=== PATIENT | female | born 1945 | race Caucasian/White ===

== ENCOUNTER 2017-04-01 06:31 | Day surgery (SDC) | payer MEDICARE, BC ==
[2017-04-01] MEDS ORDERED: fentaNYL 100 MCG/2 ML SDV ONE (07:14)
[2017-04-01] MEDS ORDERED: Propofol 200 MG/20 ML SDV ONE ×2 (07:14→07:53)
[2017-04-01] MEDS ORDERED: Sodium Chloride 0.9% 1,000 ML IV SCH (07:30)
--- NOTE | 2017-04-01 15:21 | OR ---
DATE OF PROCEDURE: 04/01/2017 PROCEDURE PERFORMED: Colonoscopy. FINDINGS: Normal colonoscopy. PREOPERATIVE DIAGNOSIS: Gastrointestinal bleeding. POSTOPERATIVE DIAGNOSIS: Gastrointestinal bleeding. RISKS: Risks, benefits, alternatives, limitations including, but not limited to infection, bleeding, and perforation were explained to the patient, and she wished to proceed. PROCEDURE IN DETAIL: The patient was placed in the left lateral decubitus position. A digital rectal exam was performed without abnormality. The scope was introduced and advanced atraumatically to the ileocecal valve. The scope was brought back to the ascending, transverse, descending colon, and retroflexed. No evidence of old or new blood. No masses. No polyps. No diverticulosis. As far as the etiology of the bleeding is concerned, there could not be definitive diagnosis due to the fact that the patient does not have any blood nor any diagnostic abnormalities. The prep would be described as moderately acceptable, and approximately 90% of luminal surface could be seen. Sukhdeep Easley MD /[id number]
== END 2017-04-01 10:00 | disposition home or self-care (01) ==
LOC: JP.SDS 06:31
PROVIDERS: ATTEND Surgery
DX: K92.2 Gastrointestinal hemorrhage, unspecified (principal); Z88.2 Allergy status to sulfonamides; Z88.8 Allergy status to other drugs, medicaments and biological substances
CPT/HCPCS: 45378; J2704; J3010; J7040

== ENCOUNTER 2021-10-03 22:44 | Emergency (ER) | payer MEDICARE ==
[2021-10-04 00:03] LABS: ESTIMATED GFR 75 mL/min (>60)
== END 2021-10-04 00:37 | disposition home or self-care (01) ==
LOC: JP.ED 22:44
DX: U07.1 COVID-19 (principal); Z88.6 Allergy status to analgesic agent; Z88.2 Allergy status to sulfonamides
CPT/HCPCS: 36415; 71046; 71046-26; 80053; 85025; 86140; 87081; 87880-QW; 99283; 99283-25; U0002

== ENCOUNTER 2022-06-27 20:34 | Emergency (ER) | payer MEDICARE ==
[2022-06-27 21:30] LABS: CORONAVIRUS COVID-19 NAA NEGATIVE (NEGATIVE)
[2022-06-27 21:37] LABS: ESTIMATED GFR 75 mL/min (>60)
[2022-06-27] MEDS ORDERED: Gabapentin 100 MG Cap PO ONE (22:00)
[2022-06-27] MEDS ORDERED: carBAMazepine 100 MG Tab ER PO ONE (22:05)
== END 2022-06-27 23:46 | disposition home or self-care (01) ==
LOC: JP.ED 20:34
DX: G50.0 Trigeminal neuralgia (principal); Z88.8 Allergy status to other drugs, medicaments and biological substances; Z20.822 Contact with and (suspected) exposure to COVID-19
CPT/HCPCS: 0241U; 36415; 70450; 80053; 85025; 85610; 85730; 86140; 99284; A9270

== ENCOUNTER 2022-07-01 20:00 | Emergency (ER) | payer MEDICARE | END 2022-07-01 22:03 | disposition home or self-care (01) | LOC: JP.ED 20:00 | DX: S50.11XA Contusion of right forearm, initial encounter (principal); S00.83XA Contusion of other part of head, initial encounter; E78.5 Hyperlipidemia, unspecified; Z88.8 Allergy status to other drugs, medicaments and biological substances; W19.XXXA Unspecified fall, initial encounter | CPT/HCPCS: 70486; 73110-26-RT; 73110-RT; 99284; 99285 ==

== ENCOUNTER 2022-10-24 15:43 | Emergency (ER) | payer MEDICARE | END 2022-10-24 16:11 | disposition left against medical advice (07) | LOC: JP.ED 15:43 | DX: Z53.21 Procedure and treatment not carried out due to patient leaving prior to being seen by health care provider (principal) ==

== ENCOUNTER 2022-12-05 07:59 | Emergency (ER) | payer MEDICARE ==
[2022-12-05 08:44] LABS: BASOPHILS ABSOLUTE AUTO 0.04 K/uL (0.00-0.10); BASOPHILS PERCENT AUTO 0.7 % (0.1-1.3); EOSINOPHILS ABSOLUTE AUTO 0.05 K/uL (0.00-0.40); EOSINOPHILS PERCENT AUTO 0.9 % (0.0-5.4); HEMATOCRIT 43.8 % (34.3-46.0); HEMOGLOBIN 14.5 g/dL (11.2-15.5); IMMATURE GRAN PERCENT AUTO 0.4 % (0.0-0.7); LYMPHOCYTES ABSOLUTE AUTO 1.06 K/uL (0.8-3.3); LYMPHOCYTES PERCENT AUTO 18.8 % (11.4-47.7); MEAN CORPUSCULAR HEMOGLOBIN 29.1 pg (31.6-35.5); MEAN CORPUSCULAR HGB CONC 33.1 g/dL (31.6-35.5); MONOCYTES PERCENT AUTO 7.1 % (3.3-12.6); NEUTROPHILS ABSOLUTE AUTO 4.07 K/uL (1.0-7.6); NEUTROPHILS PERCENT AUTO 72.1 % (40.0-78.1); PLATELET COUNT,PLT 228 K/uL (130-375); RED BLOOD CELL COUNT 4.98 M/uL (3.77-5.24); WHITE BLOOD CELL COUNT,WBC 5.6 K/uL (3.2-11.0)
[2022-12-05 08:45] LABS: IMMATURE GRAN ABSOLUTE AUTO 0.02 K/uL (0.00-0.23)
[2022-12-05 09:00] LABS: CREATININE 0.8 mg/dL (0.6-1.0); EST CRCL DRUG DOSING (CG) 45.32 mL/min; POTASSIUM,K 3.4 mmol/L (3.6-5.2)
[2022-12-05 09:02] LABS: ANION GAP 11.4 mmol/L (5.0-14.0)
[2022-12-05 09:04] LABS: APPEARANCE,URINE CLEAR (CLEAR); BILIRUBIN,URINE NEGATIVE (NEGATIVE); COLOR,URINE YELLOW (YELLOW); GLUCOSE,URINE NEGATIVE (NEGATIVE); KETONES,URINE NEGATIVE (NEGATIVE); LEUKOCYTE ESTERASE,URINE SMALL (NEGATIVE); NITRITE,URINE NEGATIVE (NEGATIVE); OCCULT BLOOD,URINE TRACE-INTACT (NEGATIVE); PROTEIN,URINE NEGATIVE (NEGATIVE); UROBILINOGEN,URINE 0.2 EU/dL (0.2-1.0)
[2022-12-05 09:11] LABS: BACTERIA,URINE FEW; EPITHELIAL CELLS,URINE MODERATE; RBC,URINE NOT SEEN (0-5); WBC,URINE 0-5 (0-5)
[2022-12-05 09:12] LABS: AMORPHOUS SEDIMENT,URINE NOT SEEN; MUCUS,URINE MODERATE
== END 2022-12-05 10:52 | disposition home or self-care (01) ==
LOC: JP.ED 07:59
DX: G30.9 Alzheimer's disease, unspecified (principal); Z88.2 Allergy status to sulfonamides; Z91.018 Allergy to other foods; Z88.6 Allergy status to analgesic agent; Z88.8 Allergy status to other drugs, medicaments and biological substances
CPT/HCPCS: 36415; 80048; 81001; 85025; 99285

== ENCOUNTER 2023-03-12 12:37 | Emergency (ER) | payer MEDICARE ==
[2023-03-12] MEDS ORDERED: OLANZapine 10 MG Vial IM ONE ×2 (12:45→12:51)
[2023-03-12 13:19] LABS: BASOPHILS ABSOLUTE AUTO 0.03 K/uL (0.00-0.10); BASOPHILS PERCENT AUTO 0.5 % (0.1-1.3); EOSINOPHILS ABSOLUTE AUTO 0.04 K/uL (0.00-0.40); EOSINOPHILS PERCENT AUTO 0.6 % (0.0-5.4); HEMATOCRIT 42.5 % (34.3-46.0); HEMOGLOBIN 13.9 g/dL (11.2-15.5); IMMATURE GRAN PERCENT AUTO 0.3 % (0.0-0.7); LYMPHOCYTES ABSOLUTE AUTO 0.62 K/uL (0.8-3.3); LYMPHOCYTES PERCENT AUTO 9.6 % (11.4-47.7); MEAN CORPUSCULAR HEMOGLOBIN 29.5 pg (31.6-35.5); MEAN CORPUSCULAR HGB CONC 32.7 g/dL (31.6-35.5); MEAN CORPUSCULAR VOLUME 90.2 fL (81.4-99.0); MONOCYTES ABSOLUTE AUTO 0.51 K/uL (0.20-0.90); MONOCYTES PERCENT AUTO 7.9 % (3.3-12.6); NEUTROPHILS ABSOLUTE AUTO 5.27 K/uL (1.0-7.6); NEUTROPHILS PERCENT AUTO 81.1 % (40.0-78.1); PLATELET COUNT,PLT 227 K/uL (130-375); RED BLOOD CELL COUNT 4.71 M/uL (3.77-5.24); WHITE BLOOD CELL COUNT,WBC 6.5 K/uL (3.2-11.0)
[2023-03-12 13:23] LABS: IMMATURE GRAN ABSOLUTE AUTO 0.02 K/uL (0.00-0.23)
[2023-03-12 13:43] LABS: A/G RATIO 0.9 (1.2-2.2); ALANINE AMINOTRANSFERASE,ALT 18 U/L (12-78); ALBUMIN 3.4 g/dL (3.4-5.0); ALKALINE PHOSPHATASE 92 U/L (46-116); ANION GAP 8.7 mmol/L (5.0-14.0); ASPARTATE AMNIOTRANSFERASE,AST 20 U/L (15-37); BILIRUBIN TOTAL 0.4 mg/dL (0.2-1.0); BLOOD UREA NITROGEN,BUN 24 mg/dL (7-18); CALCIUM 8.4 mg/dL (8.5-10.1); CARBON DIOXIDE,CO2 30 mmol/L (21-32); CHLORIDE,CL 106 mmol/L (100-108); CREATININE 0.8 mg/dL (0.6-1.0); ESTIMATED GFR 75 mL/min (>60); GLUCOSE RANDOM 99 mg/dL (74-106); POTASSIUM,K 3.7 mmol/L (3.6-5.2); PROTEIN TOTAL,TP 7.2 g/dL (6.4-8.2); SODIUM,NA 145 mmol/L (140-148)
== END 2023-03-12 15:57 | disposition home or self-care (01) ==
LOC: JP.ED 12:37
DX: R07.9 Chest pain, unspecified (principal); Z88.2 Allergy status to sulfonamides; Z91.018 Allergy to other foods; Z88.6 Allergy status to analgesic agent; Z91.02 Food additives allergy status
CPT/HCPCS: 36415; 71045; 80053; 84484; 85025; 93005; 96372; 99285; J2405

== ENCOUNTER 2023-03-25 06:26 | Inpatient (IN) | payer MEDICARE ==
[2023-03-25 06:37] LABS: BASOPHILS ABSOLUTE AUTO 0.04 K/uL (0.00-0.10); BASOPHILS PERCENT AUTO 0.2 % (0.1-1.3); EOSINOPHILS PERCENT AUTO 0.1 % (0.0-5.4); HEMATOCRIT 38.8 % (34.3-46.0); HEMOGLOBIN 12.9 g/dL (11.2-15.5); IMMATURE GRAN ABSOLUTE AUTO 0.09 K/uL (0.00-0.23); IMMATURE GRAN PERCENT AUTO 0.5 % (0.0-0.7); LYMPHOCYTES ABSOLUTE AUTO 0.79 K/uL (0.8-3.3); LYMPHOCYTES PERCENT AUTO 4.2 % (11.4-47.7); MEAN CORPUSCULAR HEMOGLOBIN 29.1 pg (31.6-35.5); MEAN CORPUSCULAR HGB CONC 33.2 g/dL (31.6-35.5); MEAN CORPUSCULAR VOLUME 87.6 fL (81.4-99.0); MONOCYTES ABSOLUTE AUTO 0.72 K/uL (0.20-0.90); MONOCYTES PERCENT AUTO 3.9 % (3.3-12.6); NEUTROPHILS PERCENT AUTO 91.1 % (40.0-78.1); PLATELET COUNT,PLT 296 K/uL (130-375); RED BLOOD CELL COUNT 4.43 M/uL (3.77-5.24); WHITE BLOOD CELL COUNT,WBC 18.7 K/uL (3.2-11.0)
[2023-03-25 06:38] LABS: EOSINOPHILS ABSOLUTE AUTO 0.01 K/uL (0.00-0.40)
[2023-03-25 06:58] LABS: CHLORIDE,CL 107 mmol/L (100-108); POTASSIUM,K 3.8 mmol/L (3.6-5.2); SODIUM,NA 140 mmol/L (140-148)
[2023-03-25 06:59] LABS: A/G RATIO 0.9 (1.2-2.2); ALBUMIN 3.3 g/dL (3.4-5.0); ANION GAP 14.8 mmol/L (5.0-14.0); BILIRUBIN TOTAL 0.3 mg/dL (0.2-1.0); BLOOD UREA NITROGEN,BUN 26 mg/dL (7-18); CALCIUM 8.3 mg/dL (8.5-10.1); CARBON DIOXIDE,CO2 22 mmol/L (21-32); CREATININE 0.8 mg/dL (0.6-1.0); ESTIMATED GFR 75 mL/min (>60); GLUCOSE RANDOM 165 mg/dL (74-106)
[2023-03-25] MEDS ORDERED: hydrALAZINE 20 MG/ML SDV IVPUSH ONE (06:59)
[2023-03-25 07:00] LABS: ALANINE AMINOTRANSFERASE,ALT 35 U/L (12-78); ALKALINE PHOSPHATASE 140 U/L (46-116); ASPARTATE AMNIOTRANSFERASE,AST 41 U/L (15-37)
[2023-03-25] MEDS ORDERED: Sodium Chloride 0.9% 1,000 ML IV SCH (07:00)
[2023-03-25] MEDS ORDERED: Sodium Chloride 3% 500 ML IV SCH (07:15)
[2023-03-25] MEDS ORDERED: OLANZapine 10 MG Vial IM ONE (07:26)
[2023-03-25 09:36] LABS: CORONAVIRUS COVID-19 NAA NEGATIVE (NEGATIVE); INFLUENZA A NAA NEGATIVE (NEGATIVE); INFLUENZA B NAA NEGATIVE (NEGATIVE); RESPIRATORY SYNCYTIAL VIR NAA NEGATIVE (NEGATIVE)
[2023-03-25] MEDS ORDERED: Ondansetron 4 MG/2 ML SDV IV PRN (10:30)
[2023-03-25] MEDS ORDERED: LORazepam ORAL Concentrate 1MG/0.5ML U/D PO PRN (10:30)
[2023-03-25] MEDS ORDERED: Ondansetron 4 MG Tab.DIS PO PRN (10:30)
[2023-03-28] MEDS: Morphine 10 MG/0.5 ML Oral Syringe PO PRN (11:58)
[2023-04-01] MEDS: Morphine 10 MG/0.5 ML Oral Syringe PO PRN ×3 (09:57→16:42)
== END 2023-04-02 03:14 | disposition expired | DRG 951 ==
LOC: JP.ED 06:26 → JP.ICU 10:12 → JP.MS 03-26 17:48
PROVIDERS: ADMIT Internal Medicine; ATTEND Hospitalist
DX: Z51.5 Encounter for palliative care (principal); I61.9 Nontraumatic intracerebral hemorrhage, unspecified; F02.811 Dementia in other diseases classified elsewhere, unspecified severity, with agitation; G30.9 Alzheimer's disease, unspecified; E78.00 Pure hypercholesterolemia, unspecified; Z66 Do not resuscitate; M81.0 Age-related osteoporosis without current pathological fracture; E78.5 Hyperlipidemia, unspecified; M19.90 Unspecified osteoarthritis, unspecified site; G62.9 Polyneuropathy, unspecified; H91.90 Unspecified hearing loss, unspecified ear; F41.9 Anxiety disorder, unspecified; W06.XXXA Fall from bed, initial encounter; Z88.6 Allergy status to analgesic agent; Z88.2 Allergy status to sulfonamides; Z88.8 Allergy status to other drugs, medicaments and biological substances; Z79.899 Other long term (current) drug therapy; Z11.52 Encounter for screening for COVID-19
CPT/HCPCS: 0241U; 36415; 70450; 80053; 84484; 85025; 93005; 93010; 96361; 96374; 99285; 99285-25; A9270-GY; J0360; J7030